=== PATIENT | male | born 1950 | race Caucasian/White ===

== ENCOUNTER 2016-11-27 18:28 | Emergency (ER) | payer MEDICARE, OTHER ==
[~2016-11-27] VITALS: Ht 188 cm; Wt 92.0 kg
[~2016-11-27 18:28] MED LIST: ASPI-676; CALC-134; LEVO50TA83 PO; [UNRECOGNIZED DRUG - REMARK]
[2016-11-27 18:40] VITALS: Ht 188 cm; Wt 92.0 kg
[2016-11-27] MEDS ORDERED: KETOROLAC 30 MG INJ IM STA (19:56)
[2016-11-27] MEDS ORDERED: CYCL-319 PO (19:57)
[2016-11-27] MEDS ORDERED: IBUP-1542 PO (19:57)
[2016-11-27 20:47] VITALS: BP 131/80; PULSE 46; RESP 20; TEMP 98.5
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
== END 2016-11-27 20:48 | disposition home or self-care (01) ==
LOC: FTE 18:28
DX: S19.9XXA Unspecified injury of neck, initial encounter (principal); S49.92XA Unspecified injury of left shoulder and upper arm, initial encounter; E11.9 Type 2 diabetes mellitus without complications; E03.9 Hypothyroidism, unspecified; V49.40XA Driver injured in collision with unspecified motor vehicles in traffic accident, initial encounter; Z79.82 Long term (current) use of aspirin
CPT/HCPCS: 96372; 99284; J1885